=== PATIENT | female | born 1960 | race Two or more races ===

== ENCOUNTER 2017-07-14 11:18 | Emergency (ER) | payer BC, OTHER ==
[2017-07-14 11:32] VITALS: BP 125/77
--- NOTE | 2017-07-14 12:02 | EDM.PDOC ---
ED HPI GENERAL MEDICAL PROBLEM - General Chief Complaint: Back Pain or Injury Stated Complaint: BACK Time Seen by Provider: 07/14/17 11:45 Source of Information: Reports: Patient, RN, RN Notes Reviewed History Limitations: Reports: No Limitations - History of Present Illness INITIAL COMMENTS - FREE TEXT/NARRATIVE: Patient presents to ER with complaint of chronic back pain. She states she called her provider at home and was told to come to the ER. No new injury. She has chronic low back and thoracic pain. Location: Reports: Back Quality: Reports: Ache Severity: Severe Improves with: Reports: None Worsens with: Reports: None Associated Symptoms: Reports: No Other Symptoms Upper Back Pain Score (Numeric/FACES): 9 - Related Data Allergies Allergy/AdvReac Type Severity Reaction Status Date / Time Penicillins Allergy Rash Verified 07/14/17 11:32 shrimp Allergy Swelling Uncoded 07/14/17 11:46 Home Meds: Home Meds Albuterol Sulfate [Proair Hfa] 2 puff INH DAILY 07/14/17 [History] Budesonide [Pulmicort] 1 dose INH ASDIRECTED PRN 07/14/17 [History] Formoterol Fumarate [Perforomist] 07/14/17 [History] Gabapentin [Neurontin] 300 mg PO BID 07/14/17 [History] Hydrochlorothiazide [Hydrochlorothiazide] 50 mg PO DAILY 07/14/17 [History] Losartan [Cozaar] 100 mg PO DAILY 07/14/17 [History] Metoprolol Succinate [Toprol Xl] 100 mg PO DAILY 07/14/17 [History] Tiotropium [Spiriva Handihaler] 1 puff INH DAILY 07/14/17 [History] oxyCODONE HCl/Acetaminophen [oxyCODONE-Acetaminophen 5-325] 1 tab PO ASDIRECTED PRN 07/14/17 [History] Past Medical History HEENT History: Reports: Impaired Vision Other HEENT History: wears glasses Cardiovascular History: Reports: Hypertension Respiratory History: Reports: COPD Gastrointestinal History: Reports: None Genitourinary History: Reports: None SWING TENDER History: Reports: None Musculoskeletal History: Reports: Back Pain, Chronic Neurological History: Reports: None Psychiatric History: Reports: None Endocrine/Metabolic History: Reports: None Hematologic History: Reports: None Immunologic History: Reports: None Oncologic (Cancer) History: Reports: None Dermatologic History: Reports: None - Infectious Disease History Infectious Disease History: Reports: Chicken Pox, Mumps - Past Surgical History Head Surgeries/Procedures: Reports: None Female Surgical History: Reports: Section Social & Family History - Family History Family Medical History: Noncontributory - Tobacco Use Smoking Status *Q: Current Every Day Smoker Years of Tobacco use: 15 Packs/Tins Daily: 0.5 Second Hand Smoke Exposure: No - Caffeine Use Caffeine Use: Reports: None - Recreational Drug Use Recreational Drug Use: No ED ROS GENERAL - Review of Systems Review Of Systems: ROS reveals no pertinent complaints other than HPI. ED EXAM,LOWER BACK PAIN/INJURY - Physical Exam Exam: See Below Exam Limited By: No Limitations General Appearance: Alert, WD/WN, No Apparent Distress Eye Exam: Bilateral Eye: Normal Inspection Ears: Normal External Exam, Normal Canal, Hearing Grossly Normal, Normal TMs Nose: Normal Inspection, Normal Mucosa, No Blood Throat/Mouth: Normal Inspection, Normal Lips, Normal Teeth, Normal Gums, Normal Oropharynx, Normal Voice, No Airway Compromise Head: Atraumatic, Normocephalic Neck: Normal Inspection, Supple, Non-Tender, Full Range of Motion Respiratory/Chest: Crackles (bilaterally) Cardiovascular: Normal Peripheral Pulses, Regular Rate, Rhythm, No Edema, No Gallop, No JVD, No Murmur, No Rub GI/Abdominal: Normal Bowel Sounds, Soft, Non-Tender, No Organomegaly, No Distention, No Abnormal Bruit, No Mass (Female) Exam: Deferred Rectal (Female) Exam: Deferred Back Exam: Normal Inspection, Full Range of Motion, NT Extremities: Normal Inspection, Normal Range of Motion, Non-Tender, No Pedal Edema, Normal Capillary Refill Neurological: Alert, Normal Mood/Affect, Normal Dorsiflexion, CN II-XII Intact, Normal Plantar Flexion, Normal Gait, Normal Reflexes, No Motor/Sensory Deficits , Oriented x 3 Psychiatric: Normal Affect, Normal Mood Skin Exam: Warm, Dry, Intact, Normal Color, No Rash Lymphatic: No Adenopathy Course - Vital Signs Last Recorded V/S: Last Vital Signs Temp 97 F 07/14/17 11:25 Pulse 80 07/14/17 11:25 Resp 16 07/14/17 11:25 BP 125/77 07/14/17 11:25 Pulse Ox 90 L 07/14/17 11:25 Departure - Departure Time of Disposition: 12:05 Disposition: Home, Self-Care 01 Condition: Good Clinical Impression: Chronic back pain Qualifiers: Back pain location: low back pain Back pain laterality: midline Sciatica presence: without sciatica Qualified Code(s): M54.5 - Low back pain; G89.29 - Other chronic pain Thoracic back pain Qualifiers: Chronicity: chronic Back pain laterality: midline Qualified Code(s): M54.6 - Pain in thoracic spine; G89.29 - Other chronic pain - Discharge Information Instructions: Back Pain, Adult, [id number] Forms: ED Department Discharge Additional Instructions: RX: Orphenadrine 100mg. * Do not drive while under the influence of this medication. Make clinic appointment to see your primary provider for as soon as you can get it. Rest.
== END 2017-07-14 12:16 | disposition home or self-care (01) ==
LOC: DL.ED 11:18
DX: G89.29 Other chronic pain (principal); M54.6 Pain in thoracic spine; I10 Essential (primary) hypertension; J44.9 Chronic obstructive pulmonary disease, unspecified; F17.210 Nicotine dependence, cigarettes, uncomplicated; Z79.899 Other long term (current) drug therapy; Z88.0 Allergy status to penicillin; Z91.013 Allergy to seafood
CPT/HCPCS: 99283

== ENCOUNTER 2018-07-16 08:35 | Observation (INO) | payer BC ==
--- NOTE | 2018-07-16 08:42 | EDM.PDOC ---
ED HPI GENERAL MEDICAL PROBLEM - General Chief Complaint: Abdominal Pain Stated Complaint: [id number] AB PAIN Time Seen by Provider: 07/16/18 08:42 Source of Information: Reports: Patient, Old Records, RN, RN Notes Reviewed History Limitations: Reports: No Limitations - History of Present Illness INITIAL COMMENTS - FREE TEXT/NARRATIVE: Pt presents to ER from home by POV with c/o onset of mid-abdominal pain with nausea this morning. Pt states that she had 2 large BM's this morning that were "normal". She felt well last night. Admits to nausea and chills. Denies fever, vomiting, diarrhea, constipation, urinary Sx's, or radiating pain. No known sick exposures, and denies suspected bad food. Onset: Today Duration: Constant Location: Reports: Abdomen Quality: Reports: Ache, Other (cramping and bloating) Severity: Severe Improves with: Reports: None Worsens with: Reports: None Associated Symptoms: Reports: No Other Symptoms Upper Abdomen Pain Score (Numeric/FACES): 8 - Related Data Allergies Allergy/AdvReac Type Severity Reaction Status Date / Time Penicillins Allergy Rash Verified 07/16/18 08:41 shrimp Allergy Swelling Uncoded 07/16/18 08:41 Home Meds: Home Meds Albuterol Sulfate [Proair Hfa] 2 puff INH DAILY 07/14/17 [History] Budesonide [Pulmicort] 1 dose INH ASDIRECTED PRN 07/14/17 [History] Formoterol Fumarate [Perforomist] 07/14/17 [History] Gabapentin [Neurontin] 300 mg PO BID 07/14/17 [History] Losartan [Cozaar] 100 mg PO DAILY 07/14/17 [History] Metoprolol Succinate [Toprol Xl] 100 mg PO DAILY 07/14/17 [History] Tiotropium [Spiriva Handihaler] 1 puff INH DAILY 07/14/17 [History] hydroCHLOROthiazide [Hydrochlorothiazide] 50 mg PO DAILY 07/14/17 [History] oxyCODONE HCl/Acetaminophen [oxyCODONE-Acetaminophen 5-325] 1 tab PO ASDIRECTED PRN 07/14/17 [History] Past Medical History HEENT History: Reports: Impaired Vision Other HEENT History: wears glasses Cardiovascular History: Reports: Hypertension Respiratory History: Reports: COPD Gastrointestinal History: Reports: None Genitourinary History: Reports: None DRY PLASTERER History: Reports: None Musculoskeletal History: Reports: Back Pain, Chronic Neurological History: Reports: None Psychiatric History: Reports: None Endocrine/Metabolic History: Reports: None Hematologic History: Reports: None Immunologic History: Reports: None Oncologic (Cancer) History: Reports: None Dermatologic History: Reports: None - Infectious Disease History Infectious Disease History: Reports: Chicken Pox, Mumps - Past Surgical History Head Surgeries/Procedures: Reports: None Female Surgical History: Reports: Section Social & Family History - Family History Family Medical History: Noncontributory - Tobacco Use Smoking Status *Q: Current Every Day Smoker Tobacco Use Within Last Twelve Months: Cigarettes - Caffeine Use Caffeine Use: Reports: None - Living Situation & Occupation Living situation: Reports: with Family ED ROS GENERAL - Review of Systems Review Of Systems: ROS reveals no pertinent complaints other than HPI. ED EXAM, GI/ABD - Physical Exam Exam: See Below Exam Limited By: No Limitations General Appearance: Alert, No Apparent Distress, Other (chronically ill, but not toxic appearing) Eyes: Bilateral: Normal Appearance Nose: Normal Inspection Throat/Mouth: Normal Inspection, Normal Lips, Normal Oropharynx, Normal Voice, No Airway Compromise Head: Atraumatic, Normocephalic Neck: Normal Inspection, Supple, Non-Tender, Full Range of Motion Respiratory/Chest: No Respiratory Distress, No Accessory Muscle Use, Chest Non- Tender, Decreased Breath Sounds, Crackles (course breath sounds), Wheezing, Prolonged Expiration. No: Stridor Cardiovascular: Regular Rate, Rhythm, No JVD GI/Abdominal Exam: Normal Bowel Sounds, Soft, No Abnormal Bruit, Tender (mild generalized abdominal tenderness. Obese, protruberant but non-distended abdomen) . No: Guarding, Rigid, Rebound (Female) Exam: Deferred Rectal (Female) Exam: Deferred Back Exam: Normal Inspection. No: CVA Tenderness (L), CVA Tenderness (R) Extremities: Normal Range of Motion, Non-Tender, Normal Capillary Refill, Pedal Edema (equal B/L with trace pitting to mid-tibia) Neurological: Alert, Oriented, CN II-XII Intact, No Motor/Sensory Deficits Psychiatric: Normal Mood Skin Exam: Warm, Dry, Intact, Normal Color, No Rash Course - Vital Signs Last Recorded V/S: Last Vital Signs Temp 36.4 C 09/11/18 08:49 Pulse 88 07/16/18 11:39 Resp 18 07/16/18 11:39 BP 161/103 H 07/16/18 11:39 Pulse Ox 90 L 07/16/18 11:39 - Orders/Labs/Meds Orders: Active Orders 24 hr Category Date Time Status Peripheral IV Care [RC] . DIRECTED Care 07/16/18 08:52 Active RT Aerosol Therapy [RC] ASDIRECTED Care 07/16/18 08:57 Active CULTURE BLOOD [BC] Stat Lab 07/16/18 09:00 Received CULTURE URINE [RM] Stat Lab 07/16/18 09:30 Received DRUG SCREEN URINE BIORAD [URCHEM] Stat Lab 07/16/18 09:35 Ordered UA W/MICROSCOPIC [URIN] Stat Lab 07/16/18 09:35 Ordered Ciprofloxacin in D5W [Cipro in D5W 400 MG/200 ML] 400 Med 07/16/18 11:57 Active mg Premix Bag 1 bag IV ONETIME Sodium Chloride 0.9% [Saline Flush] Med 07/16/18 08:52 Active 10 ml FLUSH ASDIRECTED PRN metroNIDAZOLE/Normal Saline [Flagyl 500 MG in NS 100 ML Med 07/16/18 11:57 Active ] 500 mg Premix Bag 100 bag IV ONETIME Peripheral IV Insertion Adult [OM.PC] Stat Oth 07/16/18 08:50 Ordered Medication Orders Ciprofloxacin/Dextrose 400 mg/ (Premix) 200 mls @ 200 mls/hr IV ONETIME ONE Stop: 07/16/18 12:56 Metronidazole 500 mg/ Premix 100 mls @ 100 mls/hr IV ONETIME ONE Stop: 07/16/18 12:56 Sodium Chloride (Saline Flush) 10 ml FLUSH ASDIRECTED PRN PRN Reason: Keep Vein Open Last Admin: 07/16/18 09:07 Dose: 10 ml Labs: Laboratory Tests 07/16/18 07/16/18 07/16/18 Range/Units 09:00 09:00 09:00 WBC 8.3 (5.0-10.0) 10^3/uL RBC 6.84 H (4.2-5.4) 10^6/uL Hgb 14.9 (12.0-16.0) g/dL Hct 50.5 H (37.0-47.0) % MCV 73.8 L (80-100) fL MCH 21.8 L (27.0-34.0) pg MCHC 29.5 L (33.0-35.0) g/dL Plt Count 241 (150-450) 10^3/uL Neut % (Auto) 77.3 H (42.2-75.2) % Lymph % (Auto) 12.8 L (20.5-50.1) % Sherman % (Auto) 8.8 H (2-8) % Eos % (Auto) 0.6 L (1.0-3.0) % Baso % (Auto) 0.5 (0.0-1.0) % Sodium 139 (135-145) mmol/L Potassium 3.7 (3.6-5.0) mmol/L Chloride 104 (101-111) mmol/L Carbon Dioxide 27.0 (21.0-31.0) mmol/L Anion Gap 11.7 BUN 15 (7-18) mg/dL Creatinine 0.6 (0.6-1.3) mg/dL Est Cr Clr Drug Dosing 90.41 mL/min Estimated GFR (MDRD) > 60 BUN/Creatinine Ratio 25.00 Glucose 130 H (74-105) mg/dL Lactic Acid 0.9 (0.5-2.2) mmol/L Calcium 9.6 (8.4-10.2) mg/dl Total Bilirubin 1.1 H (0.2-1.0) mg/dL AST 16 (10-42) IU/L ALT 16 (10-60) IU/L Alkaline Phosphatase 82 (42-121) IU/L Total Protein 6.7 (6.7-8.2) g/dl Albumin 3.6 (3.2-5.5) g/dl Globulin 3.1 Albumin/Globulin Ratio 1.16 Amylase 33 (28-100) U/L Lipase 18 L (22-51) U/L Urine Color (YELLOW) Urine Appearance (CLEAR) Urine pH (5.0-9.0) Ur Specific [place] (1.005-1.030) Urine Protein (NEGATIVE) Urine Glucose (UA) (NEGATIVE) Urine Ketones (NEGATIVE) Urine Occult Blood (NEGATIVE) Urine Nitrite (NEGATIVE) Urine Bilirubin (NEGATIVE) Urine Urobilinogen (0.2-1.0) mg/dL Ur Leukocyte Esterase (NEGATIVE) Urine RBC /HPF Urine WBC (0-5/HPF) /HPF Ur Epithelial Cells /HPF Urine Bacteria (0-FEW/HPF) /HPF Urine Mucus /LPF Urine Opiates Screen (NEGATIVE) Ur Oxycodone Screen (NEGATIVE) Urine Methadone Screen (NEGATIVE) Ur Barbiturates Screen (NEGATIVE) U Tricyclic Antidepress (NEGATIVE) Ur Phencyclidine Scrn (NEGATIVE) Ur Amphetamine Screen (NEGATIVE) U Methamphetamines Scrn (NEGATIVE) Urine MDMA Screen (NEGATIVE) U Benzodiazepines Scrn (NEGATIVE) Urine Cocaine Screen (NEGATIVE) U Marijuana (THC) Screen (NEGATIVE) 07/16/18 07/16/18 Range/Units 09:35 09:35 WBC (5.0-10.0) 10^3/uL RBC (4.2-5.4) 10^6/uL Hgb (12.0-16.0) g/dL Hct (37.0-47.0) % MCV (80-100) fL MCH (27.0-34.0) pg MCHC (33.0-35.0) g/dL Plt Count (150-450) 10^3/uL Neut % (Auto) (42.2-75.2) % Lymph % (Auto) (20.5-50.1) % Sherman % (Auto) (2-8) % Eos % (Auto) (1.0-3.0) % Baso % (Auto) (0.0-1.0) % Sodium (135-145) mmol/L Potassium (3.6-5.0) mmol/L Chloride (101-111) mmol/L Carbon Dioxide (21.0-31.0) mmol/L Anion Gap BUN (7-18) mg/dL Creatinine (0.6-1.3) mg/dL Est Cr Clr Drug Dosing mL/min Estimated GFR (MDRD) BUN/Creatinine Ratio Glucose (74-105) mg/dL Lactic Acid (0.5-2.2) mmol/L Calcium (8.4-10.2) mg/dl Total Bilirubin (0.2-1.0) mg/dL AST (10-42) IU/L ALT (10-60) IU/L Alkaline Phosphatase (42-121) IU/L Total Protein (6.7-8.2) g/dl Albumin (3.2-5.5) g/dl Globulin Albumin/Globulin Ratio Amylase (28-100) U/L Lipase (22-51) U/L Urine Color Dark yellow (YELLOW) Urine Appearance Cloudy (CLEAR) Urine pH 5.5 (5.0-9.0) Ur Specific [place] >= 1.030 (1.005-1.030) Urine Protein 100 H (NEGATIVE) Urine Glucose (UA) Negative (NEGATIVE) Urine Ketones Negative (NEGATIVE) Urine Occult Blood Negative (NEGATIVE) Urine Nitrite Positive H (NEGATIVE) Urine Bilirubin Small H (NEGATIVE) Urine Urobilinogen 0.2 (0.2-1.0) mg/dL Ur Leukocyte Esterase Negative (NEGATIVE) Urine RBC 0-5 /HPF Urine WBC 5-10 H (0-5/HPF) /HPF Ur Epithelial Cells Moderate H /HPF Urine Bacteria Many H (0-FEW/HPF) /HPF Urine Mucus Few H /LPF Urine Opiates Screen Negative (NEGATIVE) Ur Oxycodone Screen Positive H (NEGATIVE) Urine Methadone Screen Negative (NEGATIVE) Ur Barbiturates Screen Negative (NEGATIVE) U Tricyclic Antidepress Negative (NEGATIVE) Ur Phencyclidine Scrn Negative (NEGATIVE) Ur Amphetamine Screen Negative (NEGATIVE) U Methamphetamines Scrn Negative (NEGATIVE) Urine MDMA Screen Negative (NEGATIVE) U Benzodiazepines Scrn Negative (NEGATIVE) Urine Cocaine Screen Negative (NEGATIVE) U Marijuana (THC) Screen Negative (NEGATIVE) Meds: Medications Generic Name Dose Route Start Last Admin Trade Name Freq PRN Reason Stop Dose Admin Ciprofloxacin/Dextrose 400 mg/ 200 mls @ 200 mls/hr 07/16/18 11:57 Premix IV 07/16/18 12:56 ONETIME ONE Metronidazole 500 mg/ Premix 100 mls @ 100 mls/hr 07/16/18 11:57 IV 07/16/18 12:56 ONETIME ONE Sodium Chloride 10 ml 07/16/18 08:52 07/16/18 09:07 Saline Flush FLUSH 10 ml ASDIRECTED PRN Administration Keep Vein Open Discontinued Medications Generic Name Dose Route Start Last Admin Trade Name Freq PRN Reason Stop Dose Admin Albuterol/Ipratropium 3 ml 07/16/18 08:57 07/16/18 09:05 Duoneb 3.0-0.5 Mg/3 Ml NEB 07/16/18 08:58 3 ml ONETIME ONE Administration Fentanyl 25 mcg 07/16/18 09:27 07/16/18 09:32 Sublimaze IVPUSH 07/16/18 09:28 25 mcg ONETIME ONE Administration Fentanyl 25 mcg 07/16/18 09:51 07/16/18 09:57 Sublimaze IVPUSH 07/16/18 09:52 25 mcg ONETIME ONE Administration Fentanyl 50 mcg 07/16/18 10:30 07/16/18 10:37 Sublimaze IVPUSH 07/16/18 10:31 50 mcg ONETIME ONE Administration Sodium Chloride 1,000 mls @ 999 mls/hr 07/16/18 08:57 07/16/18 09:06 Normal Saline IV 07/16/18 09:57 999 mls/hr .BOLUS ONE Administration Iopamidol 75 ml 07/16/18 10:30 07/16/18 10:53 Isovue-300 (61%) IVPUSH 07/16/18 10:31 75 ml ONETIME ONE Administration Methylprednisolone Sodium Succinate 125 mg 07/16/18 08:57 07/16/18 09:06 Solu-Medrol IVPUSH 07/16/18 08:58 125 mg ONETIME ONE Administration Ondansetron HCl 4 mg 07/16/18 08:57 07/16/18 09:06 Zofran IV 07/16/18 08:58 4 mg ONETIME ONE Administration - Radiology Interpretation Free Text/Narrative:: CLINICAL HISTORY: 58 years old, female; Signs and symptoms; Other: Abdominal pain, bloating TECHNIQUE: Frontal view of the abdomen/pelvis with upright view of the abdomen and one or more additional views. COMPARISON: No relevant prior studies available. FINDINGS: Intraperitoneal space: No free air. Gastrointestinal tract: Possible nonspecific mid LEFT abdominal bowel thickening. No dilation. Organs: Unremarkable as visualized. Bones/joints: Previous T7 vertebroplasty. IMPRESSION: Possible nonspecific mid LEFT abdominal bowel thickening. Clinical correlation is recommended, additional imaging may be helpful if indicated. Thank you for allowing us to participate in the care of your patient. Dictated and Authenticated by: Thai Grayson MD 07/16/2018 10:12 AM Central Time ([place] & [place]) [facility] Final Radiology Report Call: [phone] assistance Online chat: [email or web address] Name: MATTHEW ROYAL Age: 58Years F Date: 07/16/2018 SSN: -- : [id number] Study: CT ABDOMEN/PELVIS WO &/OR W ONE OR BOTH RGNS Requesting Physician: LIAT HOGAN Images: 200 Addl Studies: Provided Clinical History: Contrast: Both Contrast Medium: ISOVUE 300 Contrast Amount: 75 mL Contrast Method: RAC Page 1 of 2 EXAM: CT Abdomen and Pelvis Without And With Intravenous Contrast CLINICAL HISTORY: 58 years old, female; Pain; Abdominal pain TECHNIQUE: Axial computed tomography images of the abdomen and pelvis without contrast material in one or both body regions followed by contrast material and further imaging in one or both body regions. All CT scans at this facility use at least one of these dose optimization techniques : automated exposure control; mA and/or kV adjustment per patient size (includes targeted exams where dose is matched to clinical indication); or iterative reconstruction. Delayed images were also obtained. Coronal and sagittal reformatted images were created and reviewed. CONTRAST: 75 mL of Isovue 300 administered intravenously. COMPARISON: CR - Abdomen 2V AP Upright Decub 07/16/2018 9:15 AM FINDINGS: Lung bases: LEFT lower lobe pulmonary subsegmental atelectasis. Heart: Mild cardiomegaly. ABDOMEN: Liver: Focal hypoattenuation of the hepatic left lobe medial segment is noted adjacent to the falciform ligament fissure, likely representing focal fatty infiltration. Moderate pancreatic atrophy. Gallbladder and bile ducts: Unremarkable. No calculi. No ductal dilation. Pancreas: Unremarkable. No mass. No ductal dilation. Spleen: Unremarkable. No splenomegaly. MATTHEW ROYAL | Final Radiology Report CONFIDENTIALITY STATEMENT This report is intended only for use by the referring physician, and only in accordance with law. If you received this in error, call [phone]. Page 2 of 2 Adrenals: Unremarkable. No mass. Kidneys and ureters: Posterior LEFT renal upper pole cyst measuring 3.0 cm. Stomach and bowel: Prominent caliber LEFT lower abdominal and LEFT upper pelvic small bowel loops with associated mesenteric edema (series 7, images 28 through 18), with proximal and distal decompression. There is no specific clustered appearance, limiting membrane or mesenteric twisting identified. No obstruction. PELVIS: Appendix: No findings to suggest acute appendicitis. Bladder: The urinary bladder is decompressed and difficult to assess. Reproductive: Unremarkable as visualized. ABDOMEN and PELVIS: Intraperitoneal space: Nonspecific mild pelvic peritoneal fluid. No free air. Bones/joints: Diffuse osteopenia. Grade 1 L4-5 degenerative type anterolisthesis. No acute fracture. No dislocation. Soft tissues: A tiny paraumbilical hernia containing only abdominal fat is noted. A small LEFT inguinal hernia is present containing only intra-abdominal fat. Vasculature: Atherosclerotic calcifications are present involving the RCA coronary artery. Moderate aortic atherosclerotic calcification without aneurysm. The iliac arteries show moderate bilateral atherosclerotic calcifications without evidence of aneurysm. Calcified phleboliths are present in the lower pelvis bilaterally. Lymph nodes: No enlarged lymph nodes. IMPRESSION: 1. Nonspecific small bowel process LEFT lower abdomen/upper pelvis. Differential diagnosis would include partial small bowel obstruction, focal ileus or other cause such as infectious/inflammatory or ischemic etiologies. Clinical correlation to determine the specific etiology is recommended. 2. Nonspecific mild pelvic peritoneal fluid. 3. LEFT renal cyst. 4. Coronary atherosclerosis. Thank you for allowing us to participate in the care of your patient. Dictated and Authenticated by: Thai Grayson MD 07/16/2018 11:16 AM Central Time ([place] & [place]) - Re-Assessments/Exams Free Text/Narrative Re-Assessment/Exam: 07/16/18 11:[address] Loaiza (gen. surg.) to evaluate the pt. He advises that the pt does not have a surgical abdomen at this time, but may warrant admission to the hospitalist for observation. Departure - Departure Time of Disposition: 12:04 (admitted to Dr. Cameron) Disposition: Refer to Observation Condition: Undetermined Clinical Impression: Ileus, unspecified, Bacterial vaginosis Abdominal pain Qualifiers: Abdominal location: lower abdomen, unspecified Qualified Code(s): R10.30 - Lower abdominal pain, unspecified UTI (urinary tract infection) Qualifiers: Urinary tract infection type: site unspecified Hematuria presence: without hematuria Qualified Code(s): N39.0 - Urinary tract infection, site not specified - Discharge Information *PRESCRIPTION DRUG MONITORING PROGRAM REVIEWED*: No *COPY OF PRESCRIPTION DRUG MONITORING REPORT IN PATIENT ANDREW: No Forms: ED Department Discharge - My Orders Last 24 Hours: My Active Orders 07/16/18 08:50 Peripheral IV Insertion Adult [OM.PC] Stat 07/16/18 08:52 Peripheral IV Care [RC] . DIRECTED Sodium Chloride 0.9% [Saline Flush] 10 ml FLUSH ASDIRECTED PRN 07/16/18 08:57 RT Aerosol Therapy [RC] ASDIRECTED 07/16/18 09:00 CULTURE BLOOD [BC] Stat 07/16/18 09:30 CULTURE URINE [RM] Stat 07/16/18 09:35 DRUG SCREEN URINE BIORAD [URCHEM] Stat UA W/MICROSCOPIC [URIN] Stat 07/16/18 11:57 Ciprofloxacin in D5W [Cipro in D5W 400 MG/200 ML] 400 mg Premix Bag 1 bag IV ONETIME metroNIDAZOLE/Normal Saline [Flagyl 500 MG in NS 100 ML] 500 mg Premix Bag 100 bag IV ONETIME - Assessment/Plan Last 24 Hours: My Active Orders 07/16/18 08:50 Peripheral IV Insertion Adult [OM.PC] Stat 07/16/18 08:52 Peripheral IV Care [RC] . DIRECTED Sodium Chloride 0.9% [Saline Flush] 10 ml FLUSH ASDIRECTED PRN 07/16/18 08:57 RT Aerosol Therapy [RC] ASDIRECTED 07/16/18 09:00 CULTURE BLOOD [BC] Stat 07/16/18 09:30 CULTURE URINE [RM] Stat 07/16/18 09:35 DRUG SCREEN URINE BIORAD [URCHEM] Stat UA W/MICROSCOPIC [URIN] Stat 07/16/18 11:57 Ciprofloxacin in D5W [Cipro in D5W 400 MG/200 ML] 400 mg Premix Bag 1 bag IV ONETIME metroNIDAZOLE/Normal Saline [Flagyl 500 MG in NS 100 ML] 500 mg Premix Bag 100 bag IV ONETIME
[2018-07-16] MEDS ORDERED: Ondansetron 4 MG/2 ML SDV IV ONE (08:57)
[2018-07-16] MEDS ORDERED: methylPREDNISolone Sodium Succinate 125 MG/2 ML SDV IVPUSH ONE (08:57)
[2018-07-16] MEDS ORDERED: Sodium Chloride 0.9% 1,000 ML IV ONE (08:57)
[2018-07-16] MEDS ORDERED: Albuterol/Ipratropium 3.0-0.5 MG/3 ML Neb Soln NEB ONE (08:57)
[2018-07-16] MEDS: Sodium Chloride 0.9% 10 ML Syringe FLUSH PRN ×2 (09:07→15:38)
[2018-07-16] MEDS ORDERED: fentaNYL 100 MCG/2 ML SDV IVPUSH ONE ×3 (09:27→10:30)
[2018-07-16 09:28] LABS: ANION GAP 11.7; CHLORIDE,CL 104 mmol/L (101-111); SODIUM,NA 139 mmol/L (135-145)
[2018-07-16] MEDS ORDERED: Iopamidol 612 MG/ML 75 ML Bottle IVPUSH ONE (10:30)
[2018-07-16] MEDS ORDERED: metroNIDAZOLE/Normal Saline 500 MG in Premix Bag 100 BAG IV ONE (11:57)
[2018-07-16] MEDS ORDERED: Ciprofloxacin in D5W 400 MG in Premix Bag 1 BAG IV ONE ×4 (11:57→16:00)
[2018-07-16] MEDS ORDERED: Ondansetron 4 MG/2 ML SDV IVPUSH PRN (13:20)
[2018-07-16] MEDS ORDERED: Albuterol/Ipratropium 3.0-0.5 MG/3 ML Neb Soln NEB PRN (13:20)
--- NOTE | 2018-07-16 13:41 | PCM.HP ---
H&P History of Present Illness - General Date of Service: 07/16/18 Admit Problem/Dx: Admission Diagnosis/Problem Admission Diagnosis/Problem Partial small bowel obstruction Source of Information: Patient History Limitations: Reports: No Limitations - History of Present Illness Initial Comments - Free Text/Narative: 58 yo F with hx of COPD, tobacco smoking who presents with lower abdominal pain. Abdominal pain: suprapubic, 8/10 in max intensity, colicky, waxes and wanes, last BM was this morning. Associated nausea, but no vomiting. Onset of Symptoms: Reports: Today Location: Reports: Abdomen Quality: Reports: Other Severity: Severe Improves with: Reports: None Worsens with: Reports: None Associated Symptoms: Reports: Nausea/Vomiting Upper Abdomen Pain Score (Numeric/FACES): 8 - Related Data Allergies/Adverse Reactions: Allergies Allergy/AdvReac Type Severity Reaction Status Date / Time Penicillins Allergy Rash Verified 07/16/18 12:56 shrimp Allergy Swelling Uncoded 07/16/18 12:56 Home Medications: Home Meds Albuterol Sulfate [Proair Hfa] 2 puff INH DAILY 07/14/17 [History] Budesonide [Pulmicort] 1 dose INH ASDIRECTED PRN 07/14/17 [History] Formoterol Fumarate [Perforomist] 07/14/17 [History] Gabapentin [Neurontin] 300 mg PO BID 07/14/17 [History] Losartan [Cozaar] 100 mg PO DAILY 07/14/17 [History] Metoprolol Succinate [Toprol Xl] 100 mg PO DAILY 07/14/17 [History] Tiotropium [Spiriva Handihaler] 1 puff INH DAILY 07/14/17 [History] hydroCHLOROthiazide [Hydrochlorothiazide] 50 mg PO DAILY 07/14/17 [History] oxyCODONE HCl/Acetaminophen [oxyCODONE-Acetaminophen 5-325] 1 tab PO ASDIRECTED PRN 07/14/17 [History] Past Medical History HEENT History: Reports: Impaired Vision Other HEENT History: wears glasses Cardiovascular History: Reports: Hypertension Respiratory History: Reports: COPD Gastrointestinal History: Reports: None Genitourinary History: Reports: None 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 Musculoskeletal History: Reports: Back Pain, Chronic Neurological History: Reports: None Psychiatric History: Reports: None Endocrine/Metabolic History: Reports: None Hematologic History: Reports: None Immunologic History: Reports: None Oncologic (Cancer) History: Reports: None Dermatologic History: Reports: None - Infectious Disease History Infectious Disease History: Reports: Chicken Pox, Mumps - Past Surgical History Head Surgeries/Procedures: Reports: None Female Surgical History: Reports: Section Social & Family History - Family History Family Medical History: Noncontributory - Tobacco Use Smoking Status *Q: Current Every Day Smoker Years of Tobacco use: 26 Packs/Tins Daily: 1 Second Hand Smoke Exposure: Yes - Caffeine Use Caffeine Use: Reports: Soda Other Caffeine Use: very little diet Mt Dew - Recreational Drug Use Recreational Drug Use: No - Living Situation & Occupation Living situation: Reports: with Family H&P Review of Systems - Review of Systems: Review Of Systems: See Below General: Denies: Fever HEENT: Reports: No Symptoms Pulmonary: Reports: No Symptoms Cardiovascular: Reports: No Symptoms Gastrointestinal: Reports: Abdominal Pain, Nausea. Denies: Vomiting Genitourinary: Reports: No Symptoms Musculoskeletal: Reports: No Symptoms Skin: Reports: No Symptoms Exam - Exam Exam: See Below - Vital Signs Vital Signs: Last Vital Signs Temp 36.4 C 07/16/18 08:49 Pulse 88 07/16/18 11:39 Resp 18 07/16/18 11:39 BP 161/103 H 07/16/18 11:39 Pulse Ox 90 L 07/16/18 11:39 Weight: 78.744 kg - Exam General: Alert, Oriented HEENT: Conjunctiva Clear Neck: Supple, Trachea Midline Lungs: Clear to Auscultation, Normal Respiratory Effort Cardiovascular: Regular Rate, Regular Rhythm GI/Abdominal Exam: Abnormal Bowel Sounds - Patient Data Lab Results Last 24 hrs: Laboratory Results - last 24 hr 07/16/18 07/16/18 07/16/18 Range/Units 09:00 09:00 09:00 WBC 8.3 (5.0-10.0) 10^3/uL RBC 6.84 H (4.2-5.4) 10^6/uL Hgb 14.9 (12.0-16.0) g/dL Hct 50.5 H (37.0-47.0) % MCV 73.8 L (80-100) fL MCH 21.8 L (27.0-34.0) pg MCHC 29.5 L (33.0-35.0) g/dL Plt Count 241 (150-450) 10^3/uL Neut % (Auto) 77.3 H (42.2-75.2) % Lymph % (Auto) 12.8 L (20.5-50.1) % [place] % (Auto) 8.8 H (2-8) % Eos % (Auto) 0.6 L (1.0-3.0) % Baso % (Auto) 0.5 (0.0-1.0) % Sodium 139 (135-145) mmol/L Potassium 3.7 (3.6-5.0) mmol/L Chloride 104 (101-111) mmol/L Carbon Dioxide 27.0 (21.0-31.0) mmol/L Anion Gap 11.7 BUN 15 (7-18) mg/dL Creatinine 0.6 (0.6-1.3) mg/dL Est Cr Clr Drug Dosing 90.41 mL/min Estimated GFR (MDRD) > 60 BUN/Creatinine Ratio 25.00 Glucose 130 H (74-105) mg/dL Lactic Acid 0.9 (0.5-2.2) mmol/L Calcium 9.6 (8.4-10.2) mg/dl Total Bilirubin 1.1 H (0.2-1.0) mg/dL AST 16 (10-42) IU/L ALT 16 (10-60) IU/L Alkaline Phosphatase 82 (42-121) IU/L Total Protein 6.7 (6.7-8.2) g/dl Albumin 3.6 (3.2-5.5) g/dl Globulin 3.1 Albumin/Globulin Ratio 1.16 Amylase 33 (28-100) U/L Lipase 18 L (22-51) U/L Urine Color (YELLOW) Urine Appearance (CLEAR) Urine pH (5.0-9.0) Ur Specific [place] (1.005-1.030) Urine Protein (NEGATIVE) Urine Glucose (UA) (NEGATIVE) Urine Ketones (NEGATIVE) Urine Occult Blood (NEGATIVE) Urine Nitrite (NEGATIVE) Urine Bilirubin (NEGATIVE) Urine Urobilinogen (0.2-1.0) mg/dL Ur Leukocyte Esterase (NEGATIVE) Urine RBC /HPF Urine WBC (0-5/HPF) /HPF Ur Epithelial Cells /HPF Urine Bacteria (0-FEW/HPF) /HPF Urine Mucus /LPF Urine Opiates Screen (NEGATIVE) Ur Oxycodone Screen (NEGATIVE) Urine Methadone Screen (NEGATIVE) Ur Barbiturates Screen (NEGATIVE) U Tricyclic Antidepress (NEGATIVE) Ur Phencyclidine Scrn (NEGATIVE) Ur Amphetamine Screen (NEGATIVE) U Methamphetamines Scrn (NEGATIVE) Urine MDMA Screen (NEGATIVE) U Benzodiazepines Scrn (NEGATIVE) Urine Cocaine Screen (NEGATIVE) U Marijuana (THC) Screen (NEGATIVE) 07/16/18 07/16/18 Range/Units 09:35 09:35 WBC (5.0-10.0) 10^3/uL RBC (4.2-5.4) 10^6/uL Hgb (12.0-16.0) g/dL Hct (37.0-47.0) % MCV (80-100) fL MCH (27.0-34.0) pg MCHC (33.0-35.0) g/dL Plt Count (150-450) 10^3/uL Neut % (Auto) (42.2-75.2) % Lymph % (Auto) (20.5-50.1) % [place] % (Auto) (2-8) % Eos % (Auto) (1.0-3.0) % Baso % (Auto) (0.0-1.0) % Sodium (135-145) mmol/L Potassium (3.6-5.0) mmol/L Chloride (101-111) mmol/L Carbon Dioxide (21.0-31.0) mmol/L Anion Gap BUN (7-18) mg/dL Creatinine (0.6-1.3) mg/dL Est Cr Clr Drug Dosing mL/min Estimated GFR (MDRD) BUN/Creatinine Ratio Glucose (74-105) mg/dL Lactic Acid (0.5-2.2) mmol/L Calcium (8.4-10.2) mg/dl Total Bilirubin (0.2-1.0) mg/dL AST (10-42) IU/L ALT (10-60) IU/L Alkaline Phosphatase (42-121) IU/L Total Protein (6.7-8.2) g/dl Albumin (3.2-5.5) g/dl Globulin Albumin/Globulin Ratio Amylase (28-100) U/L Lipase (22-51) U/L Urine Color Dark yellow (YELLOW) Urine Appearance Cloudy (CLEAR) Urine pH 5.5 (5.0-9.0) Ur Specific [place] >= 1.030 (1.005-1.030) Urine Protein 100 H (NEGATIVE) Urine Glucose (UA) Negative (NEGATIVE) Urine Ketones Negative (NEGATIVE) Urine Occult Blood Negative (NEGATIVE) Urine Nitrite Positive H (NEGATIVE) Urine Bilirubin Small H (NEGATIVE) Urine Urobilinogen 0.2 (0.2-1.0) mg/dL Ur Leukocyte Esterase Negative (NEGATIVE) Urine RBC 0-5 /HPF Urine WBC 5-10 H (0-5/HPF) /HPF Ur Epithelial Cells Moderate H /HPF Urine Bacteria Many H (0-FEW/HPF) /HPF Urine Mucus Few H /LPF Urine Opiates Screen Negative (NEGATIVE) Ur Oxycodone Screen Positive H (NEGATIVE) Urine Methadone Screen Negative (NEGATIVE) Ur Barbiturates Screen Negative (NEGATIVE) U Tricyclic Antidepress Negative (NEGATIVE) Ur Phencyclidine Scrn Negative (NEGATIVE) Ur Amphetamine Screen Negative (NEGATIVE) U Methamphetamines Scrn Negative (NEGATIVE) Urine MDMA Screen Negative (NEGATIVE) U Benzodiazepines Scrn Negative (NEGATIVE) Urine Cocaine Screen Negative (NEGATIVE) U Marijuana (THC) Screen Negative (NEGATIVE) Result Diagrams: 07/16/18 09:00 07/16/18 09:00 Problem List Initiated/Reviewed/Updated: Yes Orders Last 24hrs: Active Orders 24 hr Category Date Time Status Patient Status [ADT] Routine ADT 07/16/18 13:21 Ordered Oxygen Therapy [RC] PRN Care 07/16/18 13:21 Ordered Peripheral IV Care [RC] . DIRECTED Care 07/16/18 08:52 Active RT Aerosol Therapy [RC] ASDIRECTED Care 07/16/18 08:57 Active RT Aerosol Therapy [RC] ASDIRECTED Care 07/16/18 13:23 Ordered Smoking Cessation Education [RC] DAILY Care 07/16/18 13:35 Ordered VTE/DVT Education [RC] PER UNIT ROUTINE Care 07/16/18 13:21 Ordered Vital Signs [RC] Q4H Care 07/16/18 13:21 Ordered Clear Liquid Diet [DIET] Diet 07/16/18 Dinner Ordered BASIC METABOLIC PANEL,BMP [CHEM] AM Lab 07/17/18 05:11 Ordered CBC WITH AUTO DIFF [HEME] AM Lab 07/17/18 05:11 Ordered CULTURE BLOOD [BC] Stat Lab 07/16/18 09:00 Received CULTURE URINE [RM] Stat Lab 07/16/18 09:30 Received DRUG SCREEN URINE BIORAD [URCHEM] Stat Lab 07/16/18 09:35 Ordered UA W/MICROSCOPIC [URIN] Stat Lab 07/16/18 09:35 Ordered Albuterol/Ipratropium [DuoNeb 3.0-0.5 MG/3 ML] Med 07/16/18 13:20 Ordered 3 ml NEB Q4H PRN Budesonide [Pulmicort] Med 07/16/18 13:24 Ordered 1 dose INH ASDIRECTED PRN Formoterol Fumarate [Perforomist] Med 07/16/18 13:30 Unverified DOSE UNIT RTE FREQ Heparin Sodium Med 07/16/18 14:00 Ordered 5,000 units SUBCUT Q8HR Lactated Ringers @ 125 MLS/HR(1000ml) Med 07/16/18 13:30 Ordered Lactated Ringers [Ringers, Lactated] 1,000 ml IV ASDIRECTED Morphine Med 07/16/18 13:20 Ordered 2 mg IVPUSH Q2H PRN Nicotine [Habitrol] Med 07/16/18 13:45 Ordered 14 mg TRDERM DAILY Ondansetron [Zofran] Med 07/16/18 13:20 Ordered 4 mg IVPUSH Q4H PRN Sodium Chloride 0.9% [Saline Flush] Med 07/16/18 08:52 Active 10 ml FLUSH ASDIRECTED PRN Tiotropium [Spiriva HandiHaler] Med 07/17/18 09:00 Ordered 1 puff INH DAILY Peripheral IV Insertion Adult [OM.PC] Stat Oth 07/16/18 08:50 Ordered Resuscitation Status Routine Resus Stat 07/16/18 13:20 Ordered Medication Orders Albuterol/Ipratropium (Duoneb 3.0-0.5 Mg/3 Ml) 3 ml NEB Q4H PRN PRN Reason: shortness of breath/wheezing Budesonide (Pulmicort) mg INH ASDIRECTED PRN PRN Reason: Shortness of Breath Heparin Sodium (Porcine) (Heparin Sodium) 5,000 units SUBCUT Q8HR [facility] Lactated Ringer's (Ringers, Lactated) 1,000 mls @ 125 mls/hr IV ASDIRECTED [facility] Morphine Sulfate (Morphine) 2 mg IVPUSH Q2H PRN PRN Reason: Pain Ondansetron HCl (Zofran) 4 mg IVPUSH Q4H PRN PRN Reason: Nausea/Vomiting Sodium Chloride (Saline Flush) 10 ml FLUSH ASDIRECTED PRN PRN Reason: Keep Vein Open Last Admin: 07/16/18 09:07 Dose: 10 ml Tiotropium [place] (Spiriva Handihaler) mcg INH DAILY [facility] Assessment/Plan Comment:: Partial SBO -CT scan abd non-specific -can start clear liquid diet as tolerated -monitor for BS and flatus -IV fluid Ringers Lactate -pain mgt - PRN morphine -PRN zofran for n/v -if BMs resume overnight, will DC tomorrow Hx of COPD -no SOB at the present time -continue home COPD therapy (spiriva, buesonide, formoterol) Hx of cigarette smoking -I spent time to direct care counselor the patient on the need to quit smoking -start nicotine patches COde Status: GEORGIE
[2018-07-16] MEDS: Lactated Ringers 1,000 ML IV SCH (15:37)
[2018-07-16] MEDS: Morphine 2 MG/ML Syringe IVPUSH PRN ×2 (15:40→23:19)
[2018-07-16] MEDS: Nicotine 14 MG/24 Hr Patch TRDERM SCH (15:47)
[2018-07-16] MEDS: Heparin Sodium 5,000 Units/ML Vial SUBCUT SCH ×2 (15:54→23:18)
[2018-07-16] MEDS: Budesonide 0.5 MG/2 ML Neb Susp INH SCH (17:23)
[2018-07-17] MEDS: Lactated Ringers 1,000 ML IV SCH (00:55)
[2018-07-17] MEDS: Heparin Sodium 5,000 Units/ML Vial SUBCUT SCH (06:27)
[2018-07-17 07:05] LABS: CHLORIDE,CL 103 mmol/L (101-111); SODIUM,NA 139 mmol/L (135-145)
[2018-07-17 07:53] VITALS: BP 134/78
[2018-07-17] MEDS ORDERED: Tiotropium Inhaler 18 MCG Inhalation Powder Cap Kit of 5 INH SCH (09:00)
--- NOTE | 2018-07-17 09:58 | PCM.DCSUM1 ---
Discharge Summary - Hospital Course Free Text/Narrative:: 58 yo F with PMH of COPD, chronic back pain p/w abdominal pain. CT abd suggested a partial SBO. She was admitted for observation. Pain resolved overnight. She was started on a diet and tolerated it well and was okay for discharge the next morning. She also had urinalysis suggesting a UTI and is discharged on 5 days of oral ciprofloxacin. She will follow up with her PCP. Diagnosis: Stroke: No - Discharge Data Discharge Date: 07/17/18 Discharge Disposition: Home, Self-Care 01 Condition: Good - Patient Instructions Diet: Usual Diet as Tolerated Activity: As Tolerated - Discharge Plan *PRESCRIPTION DRUG MONITORING PROGRAM REVIEWED*: No *COPY OF PRESCRIPTION DRUG MONITORING REPORT IN PATIENT ANDREW: No Prescriptions/Med Rec: Ciprofloxacin HCl [Cipro] 500 mg PO BID 5 Days #10 tablet Home Medications: Home Meds Gabapentin [Neurontin] 300 mg PO BID 07/14/17 [History] Losartan [Cozaar] 100 mg PO DAILY 07/14/17 [History] Metoprolol Succinate [Toprol Xl] 100 mg PO DAILY 07/14/17 [History] hydroCHLOROthiazide [Hydrochlorothiazide] 50 mg PO DAILY 07/14/17 [History] Albuterol [Ventolin HFA] 2 puff IH Q4H PRN 07/16/18 [History] Beclomethasone Dipropionate [Qvar] 1 inh IH BID 07/16/18 [History] Ciprofloxacin HCl [Cipro] 500 mg PO BID 5 Days #10 tablet 07/17/18 [Rx] Forms: ED Department Discharge - Discharge Summary/Plan Comment DC Time >30 min.: Yes - Patient Data Vitals - Most Recent: Last Vital Signs Temp 36.9 C 07/17/18 07:52 Pulse 79 07/17/18 07:52 Resp 16 07/17/18 07:52 BP 134/78 07/17/18 07:52 Pulse Ox 79 L 07/17/18 07:52 Weight - Most Recent: 78.744 kg Lab Results - Last 24 hrs: Laboratory Results - last 24 hr 07/16/18 07/16/18 07/17/18 Range/Units 09:35 09:35 06:21 WBC 10.9 H (5.0-10.0) 10^3/uL RBC 6.49 H (4.2-5.4) 10^6/uL Hgb 13.8 (12.0-16.0) g/dL Hct 48.6 H (37.0-47.0) % MCV 74.9 L (80-100) fL MCH 21.3 L (27.0-34.0) pg MCHC 28.4 L (33.0-35.0) g/dL Plt Count 249 (150-450) 10^3/uL Neut % (Auto) 65.5 (42.2-75.2) % Lymph % (Auto) 22.6 (20.5-50.1) % [place] % (Auto) 11.5 H (2-8) % Eos % (Auto) 0.1 L (1.0-3.0) % Baso % (Auto) 0.3 (0.0-1.0) % Sodium (135-145) mmol/L Potassium (3.6-5.0) mmol/L Chloride (101-111) mmol/L Carbon Dioxide (21.0-31.0) mmol/L Anion Gap BUN (7-18) mg/dL Creatinine (0.6-1.3) mg/dL Est Cr Clr Drug Dosing mL/min Estimated GFR (MDRD) Glucose (74-105) mg/dL Calcium (8.4-10.2) mg/dl Urine Color Dark yellow (YELLOW) Urine Appearance Cloudy (CLEAR) Urine pH 5.5 (5.0-9.0) Ur Specific [place] >= 1.030 (1.005-1.030) Urine Protein 100 H (NEGATIVE) Urine Glucose (UA) Negative (NEGATIVE) Urine Ketones Negative (NEGATIVE) Urine Occult Blood Negative (NEGATIVE) Urine Nitrite Positive H (NEGATIVE) Urine Bilirubin Small H (NEGATIVE) Urine Urobilinogen 0.2 (0.2-1.0) mg/dL Ur Leukocyte Esterase Negative (NEGATIVE) Urine RBC 0-5 /HPF Urine WBC 5-10 H (0-5/HPF) /HPF Ur Epithelial Cells Moderate H /HPF Urine Bacteria Many H (0-FEW/HPF) /HPF Urine Mucus Few H /LPF Urine Opiates Screen Negative (NEGATIVE) Ur Oxycodone Screen Positive H (NEGATIVE) Urine Methadone Screen Negative (NEGATIVE) Ur Barbiturates Screen Negative (NEGATIVE) U Tricyclic Antidepress Negative (NEGATIVE) Ur Phencyclidine Scrn Negative (NEGATIVE) Ur Amphetamine Screen Negative (NEGATIVE) U Methamphetamines Scrn Negative (NEGATIVE) Urine MDMA Screen Negative (NEGATIVE) U Benzodiazepines Scrn Negative (NEGATIVE) Urine Cocaine Screen Negative (NEGATIVE) U Marijuana (THC) Screen Negative (NEGATIVE) 07/17/18 Range/Units 06:21 WBC (5.0-10.0) 10^3/uL RBC (4.2-5.4) 10^6/uL Hgb (12.0-16.0) g/dL Hct (37.0-47.0) % MCV (80-100) fL MCH (27.0-34.0) pg MCHC (33.0-35.0) g/dL Plt Count (150-450) 10^3/uL Neut % (Auto) (42.2-75.2) % Lymph % (Auto) (20.5-50.1) % [place] % (Auto) (2-8) % Eos % (Auto) (1.0-3.0) % Baso % (Auto) (0.0-1.0) % Sodium 139 (135-145) mmol/L Potassium 4.0 (3.6-5.0) mmol/L Chloride 103 (101-111) mmol/L Carbon Dioxide 29.0 (21.0-31.0) mmol/L Anion Gap 11.0 BUN 13 (7-18) mg/dL Creatinine 0.5 L (0.6-1.3) mg/dL Est Cr Clr Drug Dosing 108.49 mL/min Estimated GFR (MDRD) > 60 Glucose 94 (74-105) mg/dL Calcium 9.6 (8.4-10.2) mg/dl Urine Color (YELLOW) Urine Appearance (CLEAR) Urine pH (5.0-9.0) Ur Specific [place] (1.005-1.030) Urine Protein (NEGATIVE) Urine Glucose (UA) (NEGATIVE) Urine Ketones (NEGATIVE) Urine Occult Blood (NEGATIVE) Urine Nitrite (NEGATIVE) Urine Bilirubin (NEGATIVE) Urine Urobilinogen (0.2-1.0) mg/dL Ur Leukocyte Esterase (NEGATIVE) Urine RBC /HPF Urine WBC (0-5/HPF) /HPF Ur Epithelial Cells /HPF Urine Bacteria (0-FEW/HPF) /HPF Urine Mucus /LPF Urine Opiates Screen (NEGATIVE) Ur Oxycodone Screen (NEGATIVE) Urine Methadone Screen (NEGATIVE) Ur Barbiturates Screen (NEGATIVE) U Tricyclic Antidepress (NEGATIVE) Ur Phencyclidine Scrn (NEGATIVE) Ur Amphetamine Screen (NEGATIVE) U Methamphetamines Scrn (NEGATIVE) Urine MDMA Screen (NEGATIVE) U Benzodiazepines Scrn (NEGATIVE) Urine Cocaine Screen (NEGATIVE) U Marijuana (THC) Screen (NEGATIVE) DEBBY Results - Last 24 hrs: Microbiology 07/16/18 09:00 Aerobic Blood Culture - Preliminary Blood NO GROWTH AFTER 1 DAY Anaerobic Blood Culture - Preliminary NO GROWTH AFTER 1 DAY 07/16/18 09:30 Urine Culture - Preliminary Urine, Clean Catch Med Orders - Current: Current Medications Albuterol/Ipratropium (Duoneb 3.0-0.5 Mg/3 Ml) 3 ml NEB Q4H PRN PRN Reason: shortness of breath/wheezing Budesonide (Pulmicort) 0.5 mg INH BIDRT [facility] Last Admin: 07/16/18 17:23 Dose: Not Given Heparin Sodium (Porcine) (Heparin Sodium) 5,000 units SUBCUT Q8HR [facility] Last Admin: 07/17/18 06:27 Dose: 5,000 units Lactated Ringer's (Ringers, Lactated) 1,000 mls @ 125 mls/hr IV ASDIRECTED [facility] Last Admin: 07/17/18 00:55 Dose: 125 mls/hr Morphine Sulfate (Morphine) 2 mg IVPUSH Q2H PRN PRN Reason: Pain Last Admin: 07/16/18 23:19 Dose: 2 mg Nicotine (Habitrol) 14 mg TRDERM DAILY [facility] Last Admin: 07/16/18 15:47 Dose: 14 mg Ondansetron HCl (Zofran) 4 mg IVPUSH Q4H PRN PRN Reason: Nausea/Vomiting Last Admin: 07/16/18 15:44 Dose: 4 mg Sodium Chloride (Saline Flush) 10 ml FLUSH ASDIRECTED PRN PRN Reason: Keep Vein Open Last Admin: 07/16/18 15:38 Dose: 10 ml Tiotropium [place] (Spiriva Handihaler) 18 mcg INH DAILY [facility] Discontinued Medications Albuterol/Ipratropium (Duoneb 3.0-0.5 Mg/3 Ml) 3 ml NEB ONETIME ONE Stop: 07/16/18 08:58 Last Admin: 07/16/18 09:05 Dose: 3 ml Fentanyl (Sublimaze) 25 mcg IVPUSH ONETIME ONE Stop: 07/16/18 09:28 Last Admin: 07/16/18 09:32 Dose: 25 mcg Fentanyl (Sublimaze) 25 mcg IVPUSH ONETIME ONE Stop: 07/16/18 09:52 Last Admin: 07/16/18 09:57 Dose: 25 mcg Fentanyl (Sublimaze) 50 mcg IVPUSH ONETIME ONE Stop: 07/16/18 10:31 Last Admin: 07/16/18 10:37 Dose: 50 mcg Sodium Chloride (Normal Saline) 1,000 mls @ 999 mls/hr IV .BOLUS ONE Stop: 07/16/18 09:57 Last Admin: 07/16/18 09:06 Dose: 999 mls/hr Ciprofloxacin/Dextrose 400 mg/ (Premix) 200 mls @ 200 mls/hr IV ONETIME ONE Stop: 07/16/18 12:56 Last Admin: 07/16/18 16:11 Dose: Not Given Metronidazole 500 mg/ Premix 100 mls @ 100 mls/hr IV ONETIME ONE Stop: 07/16/18 12:56 Last Infusion: 07/16/18 16:33 Dose: Infused Ciprofloxacin/Dextrose 400 mg/ (Premix) 200 mls @ 200 mls/hr IV ONETIME ONE Stop: 07/16/18 16:59 Last Admin: 07/16/18 16:32 Dose: 200 mls/hr Iopamidol (Isovue-300 (61%)) 75 ml IVPUSH ONETIME ONE Stop: 07/16/18 10:31 Last Admin: 07/16/18 10:53 Dose: 75 ml Methylprednisolone Sodium Succinate (Solu-Medrol) 125 mg IVPUSH ONETIME ONE Stop: 07/16/18 08:58 Last Admin: 07/16/18 09:06 Dose: 125 mg Ondansetron HCl (Zofran) 4 mg IV ONETIME ONE Stop: 07/16/18 08:58 Last Admin: 07/16/18 09:06 Dose: 4 mg
[2018-07-17] MEDS: Budesonide 0.5 MG/2 ML Neb Susp INH SCH (10:09)
[2018-07-17] MEDS: Nicotine 14 MG/24 Hr Patch TRDERM SCH (10:10)
== END 2018-07-17 10:25 | disposition home or self-care (01) ==
LOC: DL.ED 08:35 → UNDOADMOB 12:19 → INTOOBSV 12:19 → DL.MS 12:19 → DL.ED 12:21 → DL.MS 13:21
PROVIDERS: ADMIT Hospitalist; ATTEND Hospitalist
DX: K56.600 Partial intestinal obstruction, unspecified as to cause (principal); J44.9 Chronic obstructive pulmonary disease, unspecified; I10 Essential (primary) hypertension; F17.210 Nicotine dependence, cigarettes, uncomplicated; Z79.899 Other long term (current) drug therapy; Z88.0 Allergy status to penicillin; Z91.013 Allergy to seafood
CPT/HCPCS: 36415; 71046; 74021; 74178; 80048; 80053; 80305; 81001; 82150; 83605; 83690; 85025; 87040; 87086; 87088; 87186; 94640; 96361; 96374; 96375; 96376; 99285; A9270; J0744; J1644; J2270; J2405; J2930; J3010; J3490; J7030; J7050; J7120; Q9967; J7620-GY

== ENCOUNTER 2018-07-28 12:03 | Emergency (ER) | payer BC ==
[2018-07-28 12:10] VITALS: BP 133/84
[2018-07-28] MEDS ORDERED: Sodium Chloride 0.9% 10 ML Syringe FLUSH PRN (12:11)
[2018-07-28] MEDS ORDERED: Albuterol/Ipratropium 3.0-0.5 MG/3 ML Neb Soln NEB ONE (12:30)
[2018-07-28 12:44] LABS: ANION GAP 9.6; CHLORIDE,CL 104 mmol/L (101-111); SODIUM,NA 140 mmol/L (135-145)
[2018-07-28 12:48] LABS: BASE EXCESS ARTERIAL 3 mmol/L ((-2)-(+3)); BICARBONATE,ARTERIAL 28.5 mmol/L (22-26); O2 DELIVERY DEVICE NASAL CANNULA; O2 SATURATION ARTERIAL 88 % (95-100); PCO2 ARTERIAL 48 mmHg (35-45); PO2 ARTERIAL 56 mmHg (70-100)
[2018-07-28 12:51] LABS: O2 FLOW RATE 6
--- NOTE | 2018-07-28 12:54 | CR ---
Clinical history: 58-year-old pain and dyspnea. Interpretation: Upright AP chest film abnormal and changed since recent 16 July 2018 exam i.e. b ilateral dependent new subpulmonic pleural effusions. BNP? EKG? Chronic borderline cardiomegaly this patient who has had vertebral plasty mid dorsal spine. No cephalization of vascular flow or signs of alveolar edema (differential diagnosis includes pulmona ry embolism/infarct). No lung mass or new focal lobar pneumonia. CONCLUSION: Abnormal. Bibasilar dependent new subpulmonic pleural effusions.
[2018-07-28] MEDS ORDERED: Aspirin 81 MG Tab.Chew PO ONE (12:55)
--- NOTE | 2018-07-28 13:39 | EDM.PDOC ---
Scribed by Snow Lux 07/28/18 [id number] for Denita Estrada NP ED HPI GENERAL MEDICAL PROBLEM - General Chief Complaint: Respiratory Problem Stated Complaint: trouble breathing Time Seen by Provider: 07/28/18 12:13 Source of Information: Reports: Patient, RN, RN Notes Reviewed History Limitations: Reports: No Limitations - History of Present Illness INITIAL COMMENTS - FREE TEXT/NARRATIVE: Patient presents to ER with with complaint of shortness of breath and pain in right middle back. Patient states she has recently been hospitalized for bowel infection and UTI. Has been taking pain medications, has been somewhat confused and lethargic lately per . Back surgery September 2017. Onset: Gradual Duration: Getting Worse Location: Reports: Chest, Back Quality: Reports: Ache Severity: Moderate Improves with: Reports: None Worsens with: Reports: None Associated Symptoms: Reports: No Other Symptoms Left Chest Pain Score (Numeric/FACES): 8 - Related Data Allergies Allergy/AdvReac Type Severity Reaction Status Date / Time Penicillins Allergy Rash Verified 07/28/18 12:05 shrimp Allergy Swelling Uncoded 07/28/18 12:05 Home Meds: Home Meds Gabapentin [Neurontin] 300 mg PO BID 07/14/17 [History] Metoprolol Succinate [Toprol Xl] 50 mg PO DAILY 07/14/17 [History] hydroCHLOROthiazide [Hydrochlorothiazide] 25 mg PO DAILY 07/14/17 [History] Albuterol [Ventolin HFA] 2 puff IH Q4H PRN 07/16/18 [History] Beclomethasone Dipropionate [Qvar] 1 inh IH BID 07/16/18 [History] Alendronate [Fosamax] 70 mg PO WEEKLY 07/28/18 [History] Metaxalone 800 mg PO TID 07/28/18 [History] Ondansetron [Zofran ODT] 4 mg PO Q8HR PRN 07/28/18 [History] Potassium Chloride 20 meq PO DAILY 07/28/18 [History] oxyCODONE 5 mg PO Q8H PRN 07/28/18 [History] rOPINIRole [Requip] 0.5 mg PO BEDTIME 07/28/18 [History] Past Medical History HEENT History: Reports: Impaired Vision Other HEENT History: wears glasses Cardiovascular History: Reports: Hypertension Respiratory History: Reports: COPD Gastrointestinal History: Reports: None Genitourinary History: Reports: None 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 Musculoskeletal History: Reports: Back Pain, Chronic Neurological History: Reports: None Psychiatric History: Reports: None Endocrine/Metabolic History: Reports: None Hematologic History: Reports: None Immunologic History: Reports: None Oncologic (Cancer) History: Reports: None Dermatologic History: Reports: None - Infectious Disease History Infectious Disease History: Reports: Chicken Pox, Mumps - Past Surgical History Head Surgeries/Procedures: Reports: None Female Surgical History: Reports: Section Social & Family History - Family History Family Medical History: Noncontributory - Caffeine Use Caffeine Use: Reports: Soda Other Caffeine Use: very little diet Mt Dew - Living Situation & Occupation Living situation: Reports: with Family ED ROS GENERAL - Review of Systems Review Of Systems: ROS reveals no pertinent complaints other than HPI. ED EXAM, GENERAL - Physical Exam Exam: See Below Exam Limited By: No Limitations General Appearance: Other (respiratory distress) Eye Exam: Bilateral Eye: EOMI, Normal Inspection, PERRL Ears: Normal External Exam, Normal Canal, Hearing Grossly Normal, Normal TMs Nose: Normal Inspection, Normal Mucosa, No Blood Throat/Mouth: Normal Inspection, Normal Lips, Normal Teeth, Normal Gums, Normal Oropharynx, Normal Voice, No Airway Compromise Head: Atraumatic, Normocephalic Neck: Normal Inspection, Supple, Non-Tender, Full Range of Motion Respiratory/Chest: Crackles (bases bilateral) Cardiovascular: Normal Peripheral Pulses, Regular Rate, Rhythm, No Edema, No Gallop, No JVD, No Murmur, No Rub GI/Abdominal: Normal Bowel Sounds, Soft, Non-Tender, No Organomegaly, No Distention, No Abnormal Bruit, No Mass (Female) Exam: Deferred Rectal (Female) Exam: Deferred Back Exam: Normal Inspection, Full Range of Motion, NT Extremities: Normal Inspection, Normal Range of Motion, Non-Tender, Normal Capillary Refill, No Pedal Edema Neurological: Alert, Other (forgetfullness of recent events) Psychiatric: Normal Affect, Normal Mood Skin Exam: Pallor ( and purple) Lymphatic: No Adenopathy EKG INTERPRETATION EKG Date: 07/28/18 Time: 12:25 Rhythm: Other (sinus rhythm) Rate (Beats/Min): 95 EKG Interpretation Comments: EKG shows sinus rhythm, probable left atrial enlargement, right axis deviation and repolarization abnormality suggests ischemia, inferior leads. Course - Vital Signs Last Recorded V/S: Last Vital Signs Temp 99.0 F 07/28/18 12:06 Pulse 93 07/28/18 13:04 Resp 18 07/28/18 12:06 BP 133/84 07/28/18 12:06 Pulse Ox 66 L 07/28/18 12:06 - Orders/Labs/Meds Orders: Active Orders 24 hr Category Date Time Status EKG 12 Lead [EKG Documentation Completion] [RC] STAT Care 07/28/18 12:14 Active Peripheral IV Care [RC] . DIRECTED Care 07/28/18 12:12 Active RT Aerosol Therapy [RC] ASDIRECTED Care 07/28/18 12:30 Active B-TYPE NATRIURETIC PEPTIDE,BNP [CHEM] Stat Lab 07/28/18 12:18 Received LACTIC ACID [CHEM] Stat Lab 07/28/18 13:19 Ordered Sodium Chloride 0.9% [Saline Flush] Med 07/28/18 12:11 Active 10 ml FLUSH ASDIRECTED PRN Peripheral IV Insertion Adult [OM.PC] Routine Oth 07/28/18 12:11 Ordered Medication Orders Sodium Chloride (Saline Flush) 10 ml FLUSH ASDIRECTED PRN PRN Reason: Keep Vein Open Last Admin: 07/28/18 12:23 Dose: 10 ml Labs: Laboratory Tests 07/28/18 07/28/18 07/28/18 Range/Units 12:18 12:18 12:45 WBC 15.9 H (5.0-10.0) 10^3/uL RBC 6.41 H (4.2-5.4) 10^6/uL Hgb 14.0 (12.0-16.0) g/dL Hct 48.0 H (37.0-47.0) % MCV 74.9 L (80-100) fL MCH 21.8 L (27.0-34.0) pg MCHC 29.2 L (33.0-35.0) g/dL Plt Count 222 (150-450) 10^3/uL Neut % (Auto) 80.5 H (42.2-75.2) % Lymph % (Auto) 6.1 L (20.5-50.1) % Craig % (Auto) 7.1 (2-8) % Eos % (Auto) 5.9 H (1.0-3.0) % Baso % (Auto) 0.4 (0.0-1.0) % ABG pH 7.39 (7.35-7.45) ABG pCO2 48 H (35-45) mmHg ABG pO2 56 L (70-100) mmHg ABG HCO3 28.5 H (22-26) mmol/L ABG O2 Saturation 88 L (95-100) % ABG Base Excess 3 ((-2)-(+3)) mmol/L O2 Delivery Device Nasal cannula Oxygen Flow Rate 6 Sodium 140 (135-145) mmol/L Potassium 3.6 (3.6-5.0) mmol/L Chloride 104 (101-111) mmol/L Carbon Dioxide 30.0 (21.0-31.0) mmol/L Anion Gap 9.6 BUN 22 H (7-18) mg/dL Creatinine 0.7 (0.6-1.3) mg/dL Est Cr Clr Drug Dosing 74.23 mL/min Estimated GFR (MDRD) > 60 BUN/Creatinine Ratio 31.42 Glucose 99 (74-105) mg/dL Calcium 9.5 (8.4-10.2) mg/dl Total Bilirubin 1.0 (0.2-1.0) mg/dL AST 39 (10-42) IU/L ALT 51 (10-60) IU/L Alkaline Phosphatase 83 (42-121) IU/L Troponin I 1.50 H* (0.00-0.02) ng/ml Total Protein 6.7 (6.7-8.2) g/dl Albumin 3.5 (3.2-5.5) g/dl Globulin 3.2 Albumin/Globulin Ratio 1.09 Meds: Medications Generic Name Dose Route Start Last Admin Trade Name Freq PRN Reason Stop Dose Admin Sodium Chloride 10 ml 07/28/18 12:11 07/28/18 12:23 Saline Flush FLUSH 10 ml ASDIRECTED PRN Administration Keep Vein Open Discontinued Medications Generic Name Dose Route Start Last Admin Trade Name Freq PRN Reason Stop Dose Admin Albuterol/Ipratropium 3 ml 07/28/18 12:30 07/28/18 13:03 Duoneb 3.0-0.5 Mg/3 Ml NEB 09/23/18 12:31 3 ml ONETIME ONE Administration Aspirin 324 mg 07/28/18 12:55 07/28/18 13:08 Aspirin PO 07/28/18 12:56 324 mg ONETIME ONE Administration - Radiology Interpretation Free Text/Narrative:: Chest x-ray: Abnormal. Bibasilar dependent new subpulmonic pleural effusions. See rad report. Departure - Departure Time of Disposition: 13:33 Disposition: DC/Tfer to Acute Hospital 02 Condition: Poor, Serious Clinical Impression: Hypoxemia, Pleural effusion, Elevated troponin - Discharge Information *PRESCRIPTION DRUG MONITORING PROGRAM REVIEWED*: No *COPY OF PRESCRIPTION DRUG MONITORING REPORT IN PATIENT ANDREW: No Forms: ED Department Discharge, Interfacility Transfer EMTALA - My Orders Last 24 Hours: My Active Orders 07/28/18 12:11 Sodium Chloride 0.9% [Saline Flush] 10 ml FLUSH ASDIRECTED PRN Peripheral IV Insertion Adult [OM.PC] Routine 07/28/18 12:12 Peripheral IV Care [RC] . DIRECTED 07/28/18 12:14 EKG 12 Lead [EKG Documentation Completion] [RC] STAT 07/28/18 12:18 B-TYPE NATRIURETIC PEPTIDE,BNP [CHEM] Stat 07/28/18 12:30 RT Aerosol Therapy [RC] ASDIRECTED 07/28/18 13:19 LACTIC ACID [CHEM] Stat - Assessment/Plan Last 24 Hours: My Active Orders 07/28/18 12:11 Sodium Chloride 0.9% [Saline Flush] 10 ml FLUSH ASDIRECTED PRN Peripheral IV Insertion Adult [OM.PC] Routine 07/28/18 12:12 Peripheral IV Care [RC] . DIRECTED 07/28/18 12:14 EKG 12 Lead [EKG Documentation Completion] [RC] STAT 07/28/18 12:18 B-TYPE NATRIURETIC PEPTIDE,BNP [CHEM] Stat 07/28/18 12:30 RT Aerosol Therapy [RC] ASDIRECTED 07/28/18 13:19 LACTIC ACID [CHEM] Stat I have read and agree with the documentation that has been completed regarding this visit. By signing this record, I attest that the documentation was completed in my physical presence and is an accurate record of the encounter.
== END 2018-07-28 14:38 ==
LOC: DL.ED 12:03
DX: R09.02 Hypoxemia (principal); J90 Pleural effusion, not elsewhere classified; R79.89 Other specified abnormal findings of blood chemistry; I10 Essential (primary) hypertension; J44.9 Chronic obstructive pulmonary disease, unspecified; Z88.0 Allergy status to penicillin; Z91.018 Allergy to other foods
CPT/HCPCS: 36415; 36600; 71045; 80053; 82803; 83605; 83880; 84484; 85025; 93005; 99285; A9270; J7050; J7620-GY

== ENCOUNTER 2018-11-21 08:03 | Emergency (ER) | payer BC ==
[2018-11-21 07:38] VITALS: BP 130/99
--- NOTE | 2018-11-21 07:49 | EDM.PDOC ---
ED HPI GENERAL MEDICAL PROBLEM - General Chief Complaint: Lower Extremity Injury/Pain Stated Complaint: ? BROKE LEG Time Seen by Provider: 11/21/18 07:45 Source of Information: Reports: Patient History Limitations: Reports: No Limitations - History of Present Illness INITIAL COMMENTS - FREE TEXT/NARRATIVE: this very pleasant female was walking on the ice today when she slipped and fell with her knee flexed in her leg going behind her. She injured her left lower extremity.She is unable to walk on it due to pain. She denies any paresthesias to the lower extremity. She denies any knee pain femur pain or hip pain. She did not hit her head. There was no loss of consciousness. Left Lower Leg Pain Score (Numeric/FACES): 10 - Related Data Allergies Allergy/AdvReac Type Severity Reaction Status Date / Time Penicillins Allergy Rash Verified 11/21/18 07:37 shrimp Allergy Swelling Uncoded 11/21/18 07:37 Home Meds: Home Meds Gabapentin [Neurontin] 300 mg PO BID 07/14/17 [History] Metoprolol Succinate [Toprol Xl] 50 mg PO DAILY 07/14/17 [History] Albuterol [Ventolin HFA] 2 puff IH Q4H PRN 07/16/18 [History] Alendronate [Fosamax] 70 mg PO WEEKLY 07/28/18 [History] Metaxalone 800 mg PO TID 07/28/18 [History] Ondansetron [Zofran ODT] 4 mg PO Q8HR PRN 07/28/18 [History] Potassium Chloride 20 meq PO DAILY 07/28/18 [History] rOPINIRole [Requip] 0.5 mg PO BEDTIME 07/28/18 [History] Albuterol [Proventil HFA] 2 puff INH Q4HR PRN 09/03/18 [History] Aspirin [Halfprin] 81 mg PO DAILY 09/03/18 [History] Clopidogrel [Plavix] 75 mg PO DAILY 09/03/18 [History] Cyclobenzaprine [Flexeril] 10 mg PO ASDIRECTED 09/03/18 [History] Diclofenac Sodium [Voltaren] 1 each TOP ASDIRECTED 09/03/18 [History] Docusate Sodium [Colace] 100 mg PO BID 09/03/18 [History] Ferrous Sulfate 325 mg PO DAILY 09/03/18 [History] Furosemide [Lasix] 40 mg PO BID 09/03/18 [History] Nicotine Polacrilex [Nicorelief] 2 mg CHEW ASDIRECTED PRN 09/03/18 [History] Nicotine [Nicoderm CQ] 1 each .XX DAILY 09/03/18 [History] Psyllium [Metamucil] 28.3 percent PO DAILY 09/03/18 [History] Terbinafine [LamISIL AT 1% Crm] 1 each .XX DAILY 09/03/18 [History] Tiotropium [Spiriva Handihaler] 1 each INH DAILY 09/03/18 [History] atorvaSTATin [Lipitor] 40 mg PO DAILY 09/03/18 [History] tiZANidine [Zanaflex] 2 mg PO TID 09/03/18 [History] Past Medical History HEENT History: Reports: Impaired Vision Other HEENT History: wears glasses Cardiovascular History: Reports: Hypertension Respiratory History: Reports: COPD Gastrointestinal History: Reports: None Genitourinary History: Reports: None 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 Musculoskeletal History: Reports: Back Pain, Chronic Neurological History: Reports: None Psychiatric History: Reports: None Endocrine/Metabolic History: Reports: None Hematologic History: Reports: None Immunologic History: Reports: None Oncologic (Cancer) History: Reports: None Dermatologic History: Reports: None - Infectious Disease History Infectious Disease History: Reports: Chicken Pox, Mumps - Past Surgical History Head Surgeries/Procedures: Reports: None Other Cardiovascular Surgeries/Procedures: said she had heaviness in her chest a few days before going to [place]; she had also passed out at home; she was sent to [place] with [place], then had PTCA Stent; referred to [place] due to CHF and due to PTCA Stent. Saw family provider Dr. Bettencourt on August 12, has upcoming cardiology appt on September 09. Since hospitatlization: denies any cp, says she has thoracic back problems--going to PT after rehab today, Says she is SOB in the AM's--she uses O2 at night, checks her sats, says that her sats are 90's during the day without oxygen. She said she was dizzy yesterday, that she had some blood work and that her BP was 90/68, she thinks her BP's are too low. Says she has lost by trying 65 lbs in the last 9 months, right wrist insertion site for angiogram looks good. Has polycythemia Female Surgical History: Reports: Section Social & Family History - Family History Family Medical History: Noncontributory - Tobacco Use Smoking Status *Q: Former Smoker Years of Tobacco use: 30 Packs/Tins Daily: 1 Used Tobacco, but Quit: Yes Month/Year Tobacco Last Used: november Second Hand Smoke Exposure: No - Caffeine Use Caffeine Use: Reports: Soda Other Caffeine Use: very little diet Mt Dew - Recreational Drug Use Recreational Drug Use: No - Living Situation & Occupation Living situation: Reports: with Family Review of Systems - Review of Systems Review Of Systems: ROS reveals no pertinent complaints other than HPI. ED EXAM, GENERAL - Physical Exam Exam: See Below Exam Limited By: No Limitations General Appearance: Alert, WD/WN, No Apparent Distress Respiratory/Chest: No Respiratory Distress, Lungs Clear, No Accessory Muscle Use Cardiovascular: Normal Peripheral Pulses, Regular Rate, Rhythm Peripheral Pulses: 2+: Femoral (L), Femoral (R), Popliteal (L), Popliteal (R), Posterior Tibial (L), Posterior Tibial (R), Dorsalis Pedis (L), Dorsalis Pedis ( R) Back Exam: Normal Inspection, Full Range of Motion Extremities: No: Normal Inspection (examination the left lower extremity showsa deformity in the mid shafttibia as well as swelling to the lateral aspect of the distal fibular region and proximal aspect of the fibula as well. I am able to put the knee throughout range of motion but it is very painful without crepitus. There is no joint effusionor swelling. There is no breaks in the skin. Pulses are normal.Her hip is unremarkable as well as the femur. Her foot is laterally rotated as well.) Neurological: Alert, Oriented, Normal Cognition, No Motor/Sensory Deficits Psychiatric: Normal Affect, Normal Mood Skin Exam: Warm, Dry, Intact, Normal Color Course - Vital Signs Last Recorded V/S: Last Vital Signs Temp 35.5 C 11/21/18 07:34 Pulse 80 11/21/18 07:34 Resp 16 11/21/18 07:34 BP 130/99 H 11/21/18 07:34 Pulse Ox 96 11/21/18 07:34 - Orders/Labs/Meds Meds: Medications Discontinued Medications Generic Name Dose Route Start Last Admin Trade Name Jeb PRN Reason Stop Dose Admin Hydrocodone Bitart/Acetaminophen Confirm 11/21/18 11:10 11/21/18 11:19 [place] 325-10 Mg Administered 11/21/18 11:11 2 tab Dose Administration 2 tab .ROUTE .STK-MED ONE Diphenhydramine HCl 25 mg 11/21/18 08:13 11/21/18 08:33 Benadryl IVPUSH 11/21/18 08:14 25 mg ONETIME ONE Administration Ibuprofen 600 mg 11/21/18 07:48 11/21/18 08:14 Motrin PO 11/21/18 07:49 600 mg ONETIME ONE Administration Morphine Sulfate 4 mg 11/21/18 08:13 11/21/18 08:36 Morphine IVPUSH 11/21/18 08:14 4 mg ONETIME ONE Administration Ondansetron HCl 4 mg 11/21/18 08:13 11/21/18 08:32 Zofran IV 11/21/18 08:14 4 mg ONETIME ONE Administration Sodium Chloride 10 ml 11/21/18 08:13 11/21/18 08:33 Saline Flush FLUSH 10 ml ASDIRECTED PRN Administration Keep Vein Open - Radiology Interpretation Free Text/Narrative:: x-ray shows a impacted fracture left proximal fibula as well as distal fibula that is more comminuted in nature. As well as a distal laterally displaced midshaft spiral type fracture. - Re-Assessments/Exams Free Text/Narrative Re-Assessment/Exam: 11/21/18 he patient was really rather unrelenting to take anything for pain even ibuprofen. Although I was able to talk her into some ibuprofen and some morphine as it'll have to rotate her foot to get into a splint. A very well-padded with a sleeve posterior splint that started about mid femur and went up and put her right foot in anatomical position of neutral with a sugar tong application as well up to the knee was applied. Prior to this the patient was given some morphine and some gentle traction and rotation to put the foot in the position of anatomical neutral. The CMS was intact following this. I did call and speak with Dr. Vazquez Zeng in [place] or the patient would like to go he was able to see the x-rays when I visited with him. he would like the patient to come to the emergency department in [place] where he will evaluate her management and most likely surgery for this. I reviewed this with the patient and she is comfortable with this plan. Although she is rather difficult and will not follow our direction to not drive home. She has received morphine while in the emergency department. I did explain the risk of driving after receiving such medication. She is clearly not intoxicated or incapable and does not have any change in her mentation. She is willing to sign an AMA form so that she can get home but her will drive her to [place]. Multiple time she was told not to drive home although she signed out AMA and drove herself home. Departure - Departure Time of Disposition: 11:00 Disposition: DC/Tfer to [facility] 02 Clinical Impression: Multiple fractures - Discharge Information Referrals: PCP,Not In Area [Primary Care Provider] - Forms: ED Department Discharge Additional Instructions: Go home the ED here in [place] to the ED in [facility] to see Dr. Bahena for possible surgery. Do not drive. Do not eat or drink anything due to possible surgery. Splint and crutches at all times. RICE therapy and keep leg elevated. [place], 1 tablet every 4 hrs as needed for pain. Dispensed from the ed 2. - Assessment/Plan Assessment:: ultiple fractures of the left lower tib-fib. To include proximal impacted fracture sure of the fi comminuted fracture of the distal fibulaand a distal spiralminimally displaced fractureof the left tibia. Splinting Crutches Left driving herself AMA Plan: Go home the ED here in [place] to the ED in [facility] to see Dr. Bahena for possible surgery. Do not drive. Do not eat or drink anything due to possible surgery. Splint and crutches at all times. RICE therapy and keep leg elevated. [place], 1 tablet every 4 hrs as needed for pain. Dispensed from the ed 2.
[~2018-11-21 08:03] MED LIST: Ibuprofen 600 MG Tab PO ONE
[2018-11-21] MEDS ORDERED: Morphine 4 MG/ML Syringe IVPUSH ONE (08:13)
[2018-11-21] MEDS ORDERED: Ondansetron 4 MG/2 ML SDV IV ONE (08:13)
[2018-11-21] MEDS ORDERED: diphenhydrAMINE 50 MG/ML SDV IVPUSH ONE (08:13)
--- NOTE | 2018-11-21 08:19 | CR ---
Clinical history: 58-year-old female left lower extremity pain (fall). Interpretation: Abnormal. Multiple, acute nondisplaced fractures left lower extremity i.e. proximal and distal diaphysis left fibula; spiral distal-mid diaphyseal fracture left tibia. No disruption or dislocation of the left ankle joint. Small heel spur at insertion of Achilles tendon posteriorly on the os calcis.
[2018-11-21] MEDS: Sodium Chloride 0.9% 10 ML Syringe FLUSH PRN ×2 (08:32→08:33)
[2018-11-21] MEDS ORDERED: Acetaminophen/HYDROcodone 325-10 MG Tab ONE (11:10)
== END 2018-11-21 11:20 ==
LOC: DL.ED 08:03
DX: S82.832A Other fracture of upper and lower end of left fibula, initial encounter for closed fracture (principal); S82.442A Displaced spiral fracture of shaft of left fibula, initial encounter for closed fracture; I10 Essential (primary) hypertension; Z88.0 Allergy status to penicillin; Z91.018 Allergy to other foods; Z79.899 Other long term (current) drug therapy; Z87.891 Personal history of nicotine dependence; W01.0XXA Fall on same level from slipping, tripping and stumbling without subsequent striking against object, initial encounter
CPT/HCPCS: 29505; 73590; 96374; 96375; 99284; A9270; J1200; J2270; J2405

== ENCOUNTER 2019-01-08 11:01 | Emergency (ER) | payer BC ==
[2019-01-08 11:22] VITALS: BP 96/74
--- NOTE | 2019-01-08 11:47 | EDM.PDOC ---
ED HPI GENERAL MEDICAL PROBLEM - General Chief Complaint: ENT Problem Stated Complaint: MOUTH BLEEDING Time Seen by Provider: 01/08/19 11:35 Source of Information: Reports: Patient History Limitations: Reports: No Limitations - History of Present Illness INITIAL COMMENTS - FREE TEXT/NARRATIVE: The patient comes emergency department today with complaints of leaking from her mouth. She reports she woke up this morning and she had bleeding from the inside of her mouth that was draining outside of her mouth on her pillow. She has not had any recent dental procedures or dental care. She has currently had some surgery for which I saw her for a couple months ago due to a rather impressive fracture of the left lower extremity. She is on aspirin and Plavix due to the history of coronary artery disease and recent cardiac stent placement as well as her alto as she had the development of a pulmonary embolism while in the hospital. She has been taking her medication as prescribed. - Related Data Allergies Allergy/AdvReac Type Severity Reaction Status Date / Time Penicillins Allergy Rash Verified 01/08/19 11:05 shrimp Allergy Swelling Uncoded 01/08/19 11:05 Home Meds: Home Meds Gabapentin [Neurontin] 300 mg PO BID 07/14/17 [History] Metoprolol Succinate [Toprol Xl] 25 mg PO DAILY 07/14/17 [History] Alendronate [Fosamax] 70 mg PO WEEKLY 07/28/18 [History] Metaxalone 800 mg PO TID 07/28/18 [History] Potassium Chloride 20 meq PO DAILY 07/28/18 [History] Albuterol [Proventil HFA] 2 puff INH Q4HR PRN 09/03/18 [History] Aspirin [Halfprin] 81 mg PO DAILY 09/03/18 [History] Clopidogrel [Plavix] 75 mg PO DAILY 09/03/18 [History] Terbinafine [LamISIL AT 1% Crm] 1 each .XX DAILY 09/03/18 [History] Tiotropium [Spiriva Handihaler] 1 each INH DAILY 09/03/18 [History] tiZANidine [Zanaflex] 2 mg PO TID 09/03/18 [History] Budesonide/Formoterol [Symbicort 160-4.5 MCG] 2 puff INH BID 01/08/19 [History] Bumetanide 1 mg PO BID 01/08/19 [History] Losartan [Cozaar] 25 mg PO DAILY 01/08/19 [History] Pravastatin Sodium 10 mg PO DAILY 01/08/19 [History] Rivaroxaban [Xarelto] 20 mg PO DAILY 01/08/19 [History] Umeclidinium [place] [Incruse Ellipta*] 62.5 mcg IH DAILY 01/08/19 [History] Past Medical History HEENT History: Reports: Impaired Vision Other HEENT History: wears glasses Cardiovascular History: Reports: CAD, Hypertension, Stents Respiratory History: Reports: COPD Other Respiratory History: Normal Sp02 90 to 91% at her best. Gastrointestinal History: Reports: None Genitourinary History: Reports: None VIOLENT CRIMES DETECTIVE History: Reports: None Musculoskeletal History: Reports: Back Pain, Chronic Neurological History: Reports: None Psychiatric History: Reports: None Endocrine/Metabolic History: Reports: None Hematologic History: Reports: None Immunologic History: Reports: None Oncologic (Cancer) History: Reports: None Dermatologic History: Reports: None - Infectious Disease History Infectious Disease History: Reports: Chicken Pox, Mumps - Past Surgical History Head Surgeries/Procedures: Reports: None Other Cardiovascular Surgeries/Procedures: said she had heaviness in her chest a few days before going to [place]; she had also passed out at home; she was sent to [place] with [place], then had PTCA Stent; referred to [place] due to CHF and due to PTCA Stent. Saw family provider Dr. Bettencourt on August 12, has upcoming cardiology appt on September 09. Since hospitatlization: denies any cp, says she has thoracic back problems--going to PT after rehab today, Says she is SOB in the AM's--she uses O2 at night, checks her sats, says that her sats are 90's during the day without oxygen. She said she was dizzy yesterday, that she had some blood work and that her BP was 90/68, she thinks her BP's are too low. Says she has lost by trying 65 lbs in the last 9 months, right wrist insertion site for angiogram looks good. Has polycythemia Female Surgical History: Reports: Section Social & Family History - Family History Family Medical History: Noncontributory - Tobacco Use Smoking Status *Q: Former Smoker Used Tobacco, but Quit: Yes Month/Year Tobacco Last Used: 9 Tobacco Use Comment: stopped smoking 7 months ago - Caffeine Use Caffeine Use: Reports: Soda Other Caffeine Use: very little diet Mt Dew - Living Situation & Occupation Living situation: Reports: with Family ED ROS ENT - Review of Systems Review Of Systems: ROS reveals no pertinent complaints other than HPI. ED EXAM, ENT - Physical Exam Exam: See Below Exam Limited By: No Limitations General Appearance: Alert, WD/WN, No Apparent Distress Eye Exam: Bilateral Eye: Normal Inspection Ears: Normal External Exam, Normal TMs Nose: Normal Inspection, Normal Mucousa, No Blood Mouth/Throat: No: Normal Gums (ON the patients left upper posterior gum line where her molars have been removed a long time around on the gum surface there is an area of excoriation/abrasion that is superficial and small amount of oozing or bleeding. NO erythem induration swelling or fluctuance concerning for abscess or infection. ) Head: Atraumatic, Normocephalic Neck: Normal Inspection, Supple Respiratory/Chest: No Respiratory Distress, No Accessory Muscle Use Cardiovascular: Normal Peripheral Pulses, Regular Rate, Rhythm Skin: Warm, Dry, Intact, Normal Color Course - Vital Signs Last Recorded V/S: Last Vital Signs Temp 36.6 C 01/08/19 11:03 Pulse 92 01/08/19 11:03 Resp 20 01/08/19 11:03 BP 96/74 01/08/19 11:03 Pulse Ox 88 L 01/08/19 11:03 - Re-Assessments/Exams Free Text/Narrative Re-Assessment/Exam: 01/08/19 11:46 The patient that this is most likely due to some type of trauma that happened in the mouth sometime during mastication. Due to the 3 medications to increase aspirin Plavix since her although she is unable to stop bleeding from this area. A piece of Surgicel was placed over the area of excoriation/abrasion that was bleeding. 2 x 2 gauze was used to hold the Surgicel in place. Repeat evaluation of the area 01/08/19 12:27 Repeat evaluation shows no bleeding following the application of above. Becomes really appear back to normal. There is no signs of gingivitis. The patient that this most likely occurred due to some trauma to the gingival area and with the ferry terminal agent multiple anti-coagulants it continues to bleed. Risk of stopping the anti-coagulants is riskier. The patient is comfortable with this plan and her questions answered. She was sent home with surgical and gauze. Departure - Departure Time of Disposition: 12:23 Disposition: Home, Self-Care 01 Clinical Impression: Bleeding gums, USP current use of anticoagulant therapy - Discharge Information Instructions: Bleeding Precautions When on Anticoagulant Therapy, Adult Forms: ED Department Discharge Additional Instructions: Continue your previous anti-coagulants. Soft diet for the next week. No straws If you must eat something that is not soft make sure and chew on the right side If bleeding re-occurs, cold cold ice water hold it in the area. May also try Listerine caution burning. If the bleeding does not stop apply the surgical supplied from the ED and show application in the ED hold for 15 mins. Return to the ED if new or worsening symptoms. Follow up with customer service analyst or dentist if continued problems. - Assessment/Plan Assessment:: Gingival bleeding left upper jaw. USP anti-coagulant therapy. Plan: Continue your previous anti-coagulants. Soft diet for the next week. No straws If you must eat something that is not soft make sure and chew on the right side If bleeding re-occurs, cold cold ice water hold it in the area. May also try Listerine caution burning. If the bleeding does not stop apply the surgical supplied from the ED and show application in the ED hold for 15 mins. Return to the ED if new or worsening symptoms. Follow up with customer service analyst or dentist if continued problems.
== END 2019-01-08 12:31 | disposition home or self-care (01) ==
LOC: DL.ED 11:01
DX: K06.8 Other specified disorders of gingiva and edentulous alveolar ridge (principal); I10 Essential (primary) hypertension; J44.9 Chronic obstructive pulmonary disease, unspecified; Z79.899 Other long term (current) drug therapy; Z79.01 Long term (current) use of anticoagulants; Z87.891 Personal history of nicotine dependence; Z88.0 Allergy status to penicillin; Z91.013 Allergy to seafood
CPT/HCPCS: 99283